=== PATIENT | male | born 1950 | race Caucasian/White ===

== ENCOUNTER 2020-10-29 12:41 | Outpatient (REF) | payer BC, MEDICARE, SELFPAY ==
--- NOTE | ~2020-10-29 | XR_ITS ---
EXAMINATION: XR CHEST CLINICAL INFORMATION: Cough COMPARISON: None TECHNIQUE: 2 views of the chest were obtained. FINDINGS: No significant abnormality is noted involving the heart, lungs, mediastinum, bony thorax or soft tissues. XR/XR chest 2V IMPRESSION: Unremarkable chest examination.
== END 2020-10-29 12:42 | disposition home or self-care (01) ==
LOC: HO.XRAY 12:41
PROVIDERS: PCP Internal Medicine; Visit Provider Physician Assistant
DX: R05 Cough (principal)
CPT/HCPCS: 71046

== ENCOUNTER 2021-04-21 10:03 | Outpatient (REF) | payer BC, MEDICARE, SELFPAY ==
[2021-04-21 14:11] LABS: MANUAL DIFF FLAG NO
[2021-04-21 14:20] LABS: Basophils Percent Auto 0.5 % (0-2); Eosinophils Absolute Auto 0.1 X10*3/uL (0.0-0.4); Eosinophils Percent Auto 1.6 % (0-4); Hemoglobin 14.2 g/dl (14.0-18.0); Imm Gran Abs Auto 0.03 X10*3/uL (0.00-0.03); Imm Gran Pct Auto 0.4 % (0.0-0.4); Lymphocytes Absolute Auto 2.4 X10*3/uL (1.2-4.9); Lymphocytes Percent Auto 28.2 % (20-40); Mean Corpuscular HGB Conc 33.8 g/dl (31.0-36.0); Mean Corpuscular Hemoglobin 30.5 pg (27.0-33.0); Mean Corpuscular Volume 90.3 fL (80.0-98.0); Mean Platelet Volume 9.6 fL (9.4-12.4); Monocytes Absolute Auto 0.9 X10*3/uL (0.1-1.2); Monocytes Percent Auto 10.1 % (2-11); Neutrophils Absolute Auto 5.1 x10*3/uL (2.0-8.3); Neutrophils Percent Auto 59.2 % (45-73); Platelet Count 330 X10*3/uL (160-400); Red Blood Count 4.65 X10*6/uL (4.60-5.80); Red Cell Distribution Width 12.9 % (11.0-16.0); White Blood Count 8.6 X10*3/uL (4.8-10.8)
[2021-04-21 14:46] LABS: Alanine Aminotransferase 31 U/L (0-40); Albumin Level 3.9 g/dL (3.5-5.0); Alkaline Phosphatase 77 U/L (39-117); Anion Gap 15 (12-20); Aspartate Amino Transferase 26 U/L (5-37); Bilirubin Total 0.6 mg/dL (0.0-1.0); Blood Urea Nitrogen 13 mg/dL (9-16); Calcium 9.5 mg/dL (8.4-10.2); Carbon Dioxide 27 mmol/L (22-29); Chloride 104 mmol/L (96-108); Cholesterol 237 mg/dL; Estimated Glomerular Filt Rate > 60; Glucose Fasting 99 mg/dL (60-99); HDL Cholesterol 49 mg/dL; LDL Cholesterol Calculated 159 mg/dl; Potassium 4.6 mmol/L (3.3-5.1); Sodium 141 mmol/L (135-145); Total Protein 6.6 g/dL (6.5-8.0); Triglycerides 146 mg/dL
== END 2021-04-21 10:04 | disposition home or self-care (01) ==
LOC: HO.MANLDS 10:03
PROVIDERS: PCP Physician Assistant; Visit Provider Physician Assistant
DX: Z00.00 Encounter for general adult medical examination without abnormal findings (principal); Z12.5 Encounter for screening for malignant neoplasm of prostate
CPT/HCPCS: 36415; 80053; 80061; 84153; 85025

== ENCOUNTER 2022-05-17 07:35 | Outpatient (REF) | payer BC, MEDICARE, SELFPAY ==
[2022-05-17 10:49] LABS: MANUAL DIFF FLAG NO
[2022-05-17 10:58] LABS: Basophils Absolute Auto 0.1 X10*3/uL (0.0-0.2); Basophils Percent Auto 0.7 % (0-2); Eosinophils Absolute Auto 0.2 X10*3/uL (0.0-0.4); Eosinophils Percent Auto 2.8 % (0-4); Hematocrit 43.1 % (42.0-52.0); Hemoglobin 14.4 g/dl (14.0-18.0); Imm Gran Abs Auto 0.01 X10*3/uL (0.00-0.03); Imm Gran Pct Auto 0.1 % (0.0-0.4); Lymphocytes Absolute Auto 2.2 X10*3/uL (1.2-4.9); Lymphocytes Percent Auto 32.7 % (20-40); Mean Corpuscular HGB Conc 33.4 g/dl (31.0-36.0); Mean Corpuscular Hemoglobin 30.3 pg (27.0-33.0); Mean Corpuscular Volume 90.5 fL (80.0-98.0); Mean Platelet Volume 9.5 fL (9.4-12.4); Monocytes Absolute Auto 0.6 X10*3/uL (0.1-1.2); Monocytes Percent Auto 8.9 % (2-11); Neutrophils Absolute Auto 3.8 x10*3/uL (2.0-8.3); Neutrophils Percent Auto 54.8 % (45-73); Platelet Count 314 X10*3/uL (160-400); Red Blood Count 4.76 X10*6/uL (4.60-5.80); Red Cell Distribution Width 13.1 % (11.0-16.0); White Blood Count 6.9 X10*3/uL (4.8-10.8)
[2022-05-17 11:30] LABS: Alanine Aminotransferase 27 U/L (0-40); Albumin Level 3.8 g/dL (3.5-5.0); Alkaline Phosphatase 62 U/L (39-117); Anion Gap 10 (12-20); Aspartate Amino Transferase 19 U/L (5-37); Bilirubin Total 0.6 mg/dL (0.0-1.0); Blood Urea Nitrogen 15 mg/dL (9-16); Calcium 9.3 mg/dL (8.4-10.2); Carbon Dioxide 30 mmol/L (22-29); Chloride 107 mmol/L (96-108); Cholesterol 233 mg/dL; Estimated Glomerular Filt Rate > 60; Glucose Random 115 mg/dL (60-115); HDL Cholesterol 47 mg/dL; LDL Cholesterol Calculated 167 mg/dl; Potassium 4.6 mmol/L (3.3-5.1); Sodium 142 mmol/L (135-145); Total Protein 6.2 g/dL (6.5-8.0); Triglycerides 96 mg/dL
== END 2022-05-17 07:36 | disposition home or self-care (01) ==
LOC: HO.MANLDS 07:35
PROVIDERS: Visit Provider Physician Assistant
DX: Z00.00 Encounter for general adult medical examination without abnormal findings (principal); Z12.5 Encounter for screening for malignant neoplasm of prostate
CPT/HCPCS: 36415; 80053; 80061; 84153; 85025

== ENCOUNTER 2023-07-18 07:45 | Outpatient (REF) | payer BC, MEDICARE, SELFPAY ==
[2023-07-18 13:03] LABS: MANUAL DIFF FLAG NO
[2023-07-18 13:19] LABS: Basophils Absolute Auto 0.1 X10*3/uL (0.0-0.2); Basophils Percent Auto 0.7 % (0-2); Eosinophils Absolute Auto 0.2 X10*3/uL (0.0-0.4); Eosinophils Percent Auto 2.9 % (0-4); Hematocrit 46.4 % (42.0-52.0); Hemoglobin 15.4 g/dl (14.0-18.0); Imm Gran Abs Auto 0.01 X10*3/uL (0.00-0.03); Imm Gran Pct Auto 0.1 % (0.0-0.4); Lymphocytes Absolute Auto 2.3 X10*3/uL (1.2-4.9); Lymphocytes Percent Auto 34.2 % (20-40); Mean Corpuscular HGB Conc 33.2 g/dl (31.0-36.0); Mean Corpuscular Hemoglobin 29.8 pg (27.0-33.0); Mean Corpuscular Volume 89.9 fL (80.0-98.0); Mean Platelet Volume 9.5 fL (9.4-12.4); Monocytes Absolute Auto 0.7 X10*3/uL (0.1-1.2); Monocytes Percent Auto 10.3 % (2-11); Neutrophils Absolute Auto 3.5 x10*3/uL (2.0-8.3); Neutrophils Percent Auto 51.8 % (45-73); Platelet Count 313 X10*3/uL (160-400); Red Blood Count 5.16 X10*6/uL (4.60-5.80); Red Cell Distribution Width 13.2 % (11.0-16.0); White Blood Count 6.8 X10*3/uL (4.8-10.8)
[2023-07-18 13:20] LABS: Estimated Average Glucose 126 mg/dL
[2023-07-18 13:47] LABS: Alanine Aminotransferase 26 U/L (0-40); Albumin Level 3.9 g/dL (3.5-5.0); Alkaline Phosphatase 60 U/L (39-117); Anion Gap 14 (12-20); Aspartate Amino Transferase 23 U/L (5-37); Bilirubin Total 0.7 mg/dL (0.0-1.0); Blood Urea Nitrogen 16 mg/dL (9-16); Calcium 9.8 mg/dL (8.4-10.2); Carbon Dioxide 27 mmol/L (22-29); Chloride 101 mmol/L (96-108); Cholesterol 237 mg/dL (<200); Estimated Glomerular Filt Rate > 60; Glucose Random 106 mg/dL (60-115); HDL Cholesterol 60 mg/dL (>40); LDL Cholesterol Calculated 151 mg/dL (<100); Potassium 4.2 mmol/L (3.3-5.1); Sodium 138 mmol/L (135-145); Total Protein 6.8 g/dL (6.5-8.0); Triglycerides 134 mg/dL (<150)
[2023-07-18 14:05] LABS: Prostate Specific Antigen 1.23 ng/mL (<0.05-4.0)
== END 2023-07-18 07:46 | disposition home or self-care (01) ==
LOC: HO.MANLDS 07:45
PROVIDERS: Visit Provider Physician Assistant
DX: Z00.00 Encounter for general adult medical examination without abnormal findings (principal); Z12.5 Encounter for screening for malignant neoplasm of prostate
CPT/HCPCS: 36415; 80053; 80061; 83036; 84153; 85025

== ENCOUNTER 2024-04-13 08:27 | Outpatient (REF) | payer BC, MEDICARE, SELFPAY ==
[2024-04-13 13:21] LABS: MANUAL DIFF FLAG NO
[2024-04-13 13:38] LABS: Basophils Percent Auto 0.7 % (0-2); Eosinophils Absolute Auto 0.2 X10*3/uL (0.0-0.4); Eosinophils Percent Auto 3.3 % (0-4); Hematocrit 43.8 % (42.0-52.0); Imm Gran Abs Auto 0.01 X10*3/uL (0.00-0.03); Imm Gran Pct Auto 0.2 % (0.0-0.4); Mean Corpuscular HGB Conc 34.2 g/dl (31.0-36.0); Mean Corpuscular Hemoglobin 31.1 pg (27.0-33.0); Mean Corpuscular Volume 90.9 fL (80.0-98.0); Mean Platelet Volume 9.3 fL (9.4-12.4); Monocytes Absolute Auto 0.7 X10*3/uL (0.1-1.2); Monocytes Percent Auto 12.5 % (2-11); Neutrophils Absolute Auto 2.8 x10*3/uL (2.0-8.3); Neutrophils Percent Auto 49.3 % (45-73); Platelet Count 290 X10*3/uL (160-400); Red Blood Count 4.82 X10*6/uL (4.60-5.80); Red Cell Distribution Width 13.6 % (11.0-16.0); White Blood Count 5.8 X10*3/uL (4.8-10.8)
[2024-04-13 14:01] LABS: Estimated Average Glucose 131 mg/dL; Hemoglobin A1C 176.3652 umol/L; Hemoglobin A1c % 6.2 % (<6.0); Total Hemoglobin (HGBA1C) 3959.3102 umol/L
[2024-04-13 14:10] LABS: Alanine Aminotransferase 31 U/L (0-40); Albumin Level 3.8 g/dL (3.5-5.0); Alkaline Phosphatase 69 U/L (39-117); Anion Gap 12 (12-20); Aspartate Amino Transferase 31 U/L (5-37); Bilirubin Total 0.5 mg/dL (0.0-1.0); Blood Urea Nitrogen 13 mg/dL (9-16); Calcium 9.8 mg/dL (8.4-10.2); Carbon Dioxide 29 mmol/L (22-29); Chloride 103 mmol/L (96-108); Cholesterol 226 mg/dL (<200); Estimated Glomerular Filt Rate > 60; Glucose Random 93 mg/dL (60-115); HDL Cholesterol 55 mg/dL (>40); LDL Cholesterol Calculated 149 mg/dL (<100); Potassium 4.4 mmol/L (3.3-5.1); Sodium 140 mmol/L (135-145); Total Protein 6.7 g/dL (6.5-8.0); Triglycerides 112 mg/dL (<150)
[2024-04-13 14:27] LABS: T4 Thyroxine 6.8 ug/dL (4.5-12.0); Thyroid Stimulating Hormone 1.76 uIU/mL (0.32-4.0)
== END 2024-04-13 08:28 | disposition home or self-care (01) ==
LOC: HO.MANLDS 08:27
PROVIDERS: Visit Provider Physician Assistant
DX: Z00.00 Encounter for general adult medical examination without abnormal findings (principal); Z13.1 Encounter for screening for diabetes mellitus
CPT/HCPCS: 36415; 80053; 80061; 83036; 84436; 84443; 85025